=== PATIENT | female | born 1965 | race Caucasian/White ===

== ENCOUNTER → 2021-03-08 12:07 | Outpatient (CLI) | payer OTHER, SELFPAY ==
[2021-03-08 15:21] LABS: ALB/GLOB Ratio 0.8 RATIO (0.9-2.4); AST(SGOT) 15 U/L (15-37); Alanine Aminotransfer ALT/SGPT 32 U/L (13-56); Albumin, Serum 3.4 g/dL (3.2-5.0); Alkaline Phosphatase 45 U/L (45-117); Anion Gap 8 (5-15); BUN 19 mg/dL (7-18); BUN/Creat Ratio 19.9 RATIO (10-20); Calcium,Total 9.2 mg/dL (8.5-10.1); Chloride 99 mmol/L (98-107); Creatinine, Serum 0.95 mg/dL (0.55-1.02); EST Glomerular Filtration Rate 64 mL/min (>60); Est Glom Filt Rate - Afr Amer 78 mL/min (>60); Globulin 4.5 g/dL (2.2-4.2); Glucose 89 mg/dL (74-106); Potassium 3.7 mmol/L (3.5-5.1); Protein, Total 7.9 g/dL (6.4-8.2); Sodium Level 139 mmol/L (136-145)
== END ==
PROVIDERS: PCP Family Medicine; Referring Provider Family Medicine; Visit Provider Family Medicine
DX: I10 Essential (primary) hypertension (principal)
CPT/HCPCS: 36415; 80053

== ENCOUNTER 2022-04-16 11:56 | Outpatient (CLI) | payer OTHER, SELFPAY ==
[2022-04-16 15:31] LABS: ALB/GLOB Ratio 0.8 RATIO (0.9-2.4); AST(SGOT) 18 U/L (15-37); Alanine Aminotransfer ALT/SGPT 34 U/L (13-56); Albumin, Serum 3.4 g/dL (3.2-5.0); Alkaline Phosphatase 55 U/L (45-117); Anion Gap 5 (5-15); BUN 17 mg/dL (7-18); BUN/Creat Ratio 19.6 RATIO (10-20); Calcium,Total 9.1 mg/dL (8.5-10.1); Chloride 100 mmol/L (98-107); Cholesterol 151 mg/dL (200); Creatinine, Serum 0.87 mg/dL (0.55-1.02); EST Glomerular Filtration Rate 71 mL/min (>60); Est Glom Filt Rate - Afr Amer 86 mL/min (>60); Globulin 4.4 g/dL (2.2-4.2); Glucose 91 mg/dL (74-106); High Density Lipoprotein 48 mg/dL; Potassium 3.8 mmol/L (3.5-5.1); Protein, Total 7.8 g/dL (6.4-8.2); Sodium Level 136 mmol/L (136-145); Triglycerides 125 mg/dL; Very Low Density Lipoprotein 25 mg/dL (5-40)
== END 2022-04-16 23:59 | disposition home or self-care (01) ==
LOC: BIMLAB 11:57
PROVIDERS: PCP Family Medicine; Visit Provider Family Medicine
DX: E78.00 Pure hypercholesterolemia, unspecified (principal)
CPT/HCPCS: 36415; 80053; 80061

== ENCOUNTER → 2023-04-02 | Outpatient (CLI) | payer OTHER, SELFPAY ==
[2023-04-02 12:53] LABS: AST(SGOT) 17 U/L (15-37); Alanine Aminotransfer ALT/SGPT 38 U/L (13-56); Albumin, Serum 3.8 g/dL (3.2-5.0); Alkaline Phosphatase 43 U/L (45-117); Anion Gap 5 (5-15); BUN 18 mg/dL (7-18); BUN/Creat Ratio 19.5 RATIO (10-20); Calcium,Total 8.9 mg/dL (8.5-10.1); Chloride 101 mmol/L (98-107); Cholesterol 149 mg/dL (200); Creatinine, Serum 0.92 mg/dL (0.55-1.02); EST Glomerular Filtration Rate 66 mL/min (>60); Est Glom Filt Rate - Afr Amer 80 mL/min (>60); Glucose 108 mg/dL (74-106); High Density Lipoprotein 44 mg/dL; Potassium 3.7 mmol/L (3.5-5.1); Protein, Total 7.8 g/dL (6.4-8.2); Sodium Level 136 mmol/L (136-145); Triglycerides 90 mg/dL; Very Low Density Lipoprotein 18 mg/dL (5-40)
[2023-04-05 16:54] LABS: HPV Reflexed? NOT INDICATED
== END | disposition home or self-care (01) ==
LOC: BIMLAB 09:40
PROVIDERS: PCP Family Medicine; Referring Provider Family Medicine; Visit Provider Family Medicine
DX: Z01.419 Encounter for gynecological examination (general) (routine) without abnormal findings (principal); I10 Essential (primary) hypertension; E78.00 Pure hypercholesterolemia, unspecified
CPT/HCPCS: 36415; 80053; 80061; 88175; G0145

== ENCOUNTER → 2023-07-02 | Outpatient (CLI) | payer OTHER, SELFPAY ==
--- OUTSIDE RECORDS SUMMARY | 2023-07-02 07:05 | XMS RPT_ITS | CCD ---
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 Role Phone DAHIANA LE DO Primary Care Physician SURJIT SMITH, DR BREWER Attending Unavailab le DAHIANA LE DO Primary Care Unavailable DAHIANA LE DO Attending Unavailable DAHIANA LE DO Primary Care Unavailable Medications Current Medications Medication Drug Class(es) Dates Sig (Normalized) Sig (Original) aspirin 81 mg oral tablet (2 sources) Platelet Aggregation Inhibitor, Nonsteroidal Anti-inflammatory Drug Start: 06-23-2014 take 1 dose by mouth once daily aspirin Dose : 81 mg =, Oral, qDay Start Date: 06/23/14 Status: Ordered hydroCHLOROthiazide 12.5 mg / valsartan 80 mg oral tablet (1 source) Thiazide Diuretic, Angiotensin 2 Receptor Evan Start: 06-23-2014 take 1 tablet by mouth once daily Diovan HCT 80 mg-12.5 mg oral tablet Dose = 1 tab(s), Oral, Daily Start Date: 06/23/14 Status: Ordered omeprazole 20 mg delayed release oral capsule (2 sources) Proton Pump Inhibitor Start: 10-01-2018 take 1 capsule by mouth once daily omeprazole 20 mg oral delayed release capsule TAKE ONE CAPSULE BY MOUTH EVERY DAY Start Date: 10/01/18 Status: Ordered pravastatin sodium 10 mg oral tablet (2 sources) HMG-CoA Reductase Inhibitor Start: 06-23-2014 pravastatin 10 mg oral tablet Dose : 10 mg = 1 tab(s), Oral, qHS Start Date: 06/23/14 Status: Ordered valsartan (1 source) Angiotensin 2 Receptor Evan Start: 06-23-2014 take 1 tablet by mouth once daily Diovan HCT 80 mg-12.5 mg oral tablet Dose = 1 tab(s), Oral, Daily Start Date: 06/23/14 Status: Ordered Problems Problem Classification Problem Date Documented Date Episodic/Chronic Disorders of lipid metabolism (2 sources) Hypercholesterolemia 06-23-2014 Chronic Essential hypertension (2 sources) Hypertensive disorder 06-23-2014 Chronic Other upper respiratory infections (1 source) Acute upper respiratory infection; Translations: [Acute upper respiratory infection, unspecified] Onset: Episodic Results Test Name Value Interpretation Reference Range Facil ity Vital Signs Date Time Vital Sign Value Performing Clinician Faci lity 11-28-2022 08:56-[address] DANIELLA EDDY MD [facility] 11-28-2022 08:56-[address] DANIELLA EDDY MD [facility] 11-28-2022 08:56-0400 Body temperature 99.68 [degF] DR DANIELLA EDDY MD [facility] 11-28-2022 08:56-0400 Diastolic Blood Pressure Non-Invasive [address] DANIELLA EDDY MD [facility] 11-28-2022 08:56-0400 Heart rate 92 /min DR DANIELLA EDDY MD [facility] 11-28-2022 08:56-0400 Respiratory rate 18 /min DR DANIELLA EDDY MD [facility] 11-28-2022 08:56-0400 Systolic Blood Pressure Non-Invasive [address] DANIELLA EDDY MD [facility] Encounters Encounter Date Encounter Type Care Provider Facility Start: 06-20-2023 ambulatory DAHIANA LE DO Faci lity:B Start: 11-28-2022 End: 11-28-2022 Emergency department patient visit DR DANIELLA EDDY MD Facility:B Start: 11-28-2022 End: 11-28-2022 Emergency department patient visit DR DANIELLA EDDY MD [facility] Start: 05-17-2021 End: 05-17-2021 Patient encounter procedure DAHIANA LE DO [facility] Procedures Date Procedure Procedure Detail Performing Clinician section DAHIANA LARSON DO Payers Date Payer Category Payer Unknown [id number] 1965 Unknown [id number] 1965 Unknown [id number] Social History Date Type Detail Facility Start: 10-01-2018 Never smoked t obacco (finding) [facility] Assigned At [facility] Functional Status Date Assessment Result Facility 11-28-2022 Functional Status ID band on, Call device within reach, Bed in low position, Wheels locked, Upper/Half-Length side-rails up, Visitor at bedside [facility] Mental Status Date Assessment Result Facility 11-28-2022 Mental Status Oriented x 4 [facility] Discharge instructions 11-28-2022 Note Date & Type Note Facility 11-28-2022 Hospital Discharg e instructions Patient Education 11/28/2022 10:31:21 URI, Viral, No Abx (Adult) Viral Upper Respiratory Illness (Adult) You have a viral upper respiratory illness (URI), which is another term for the common cold. This illness is contagious during the first few days. It is spread through the air by coughing and sneezing. It may also be spread by direct contact (touching the sick person and then touching your own eyes, nose, or mouth). Frequent handwashing will decrease risk of spread. Most viral illnesses go away within 7 to 10 days with rest and simple home remedies. Sometimes the illness may last for several weeks. Antibiotics will not kill a virus, and they are generally not prescribed for this condition. Home care If symptoms are severe, rest at home for the first 2 to 3 days. When you resume activity, don't let yourself get too tired. Don't smoke. If you need help stopping, talk with your healthcare provider. Avoid being exposed to cigarette smoke (yours or others ). You may use acetaminophen or ibuprofen to control pain and fever, unless another medicine was prescribed. If you have chronic liver or kidney disease, have ever had a stomach ulcer or gastrointestinal bleeding, or are taking blood-thinning medicines, talk with your healthcare provider before using these medicines. Aspirin should never be given to anyone under 18 years of age who is ill with a viral infection or fever. It may cause severe liver or brain damage. Your appetite may be poor, so a light diet is fine. Stay well hydrated by drinking 6 to 8 glasses of fluids per day (water, soft drinks, juices, tea, or soup). Extra fluids will help loosen secretions in the nose and lungs. Nvtz-pdc-kkmklzj cold medicines will not shorten the length of time you re sick, but they may be helpful for the following symptoms: cough, sore throat, and nasal and sinus congestion. If you take prescription medicines, ask your healthcare provider or pharmacist which drdz-imz-ovgenle medicines are safe to use. (Note: Don't use decongestants if you have high blood pressure.) Follow-up care Follow up with your healthcare provider, or as advised. When to seek medical advice Call your healthcare provider right away if any of these occur: Cough with lots of colored sputum (mucus) Severe headache; face, neck, or ear pain Difficulty swallowing due to throat pain Fever of 100.4 F (38 C) or higher, or as directed by your healthcare provider Call 911 Call 911 if any of these occur: Chest pain, shortness of breath, wheezing, or difficulty breathing Coughing up blood Very severe pain with swallowing, especially if it goes along with a muffled voice [phone] [employer]. [address] [place] [address], [place] [address]. All rights reserved. This information is not intended as a substitute for professional medical care. Always follow your healthcare professional's instructions. Follow Up Care 11/28/2022 08:47:28 With:DAHIANA LE DO Address: [facility] [address] [place] [address] [place] [address] [phone] When:2-4 days [facility] Kirstenselina Resendez Clinical Note 11-28-2022 Note Date & Type Note Facility 11-28-2022 Note Discharge Instructions Thank you for allowing [facility] to assist you with your healthcare needs. The following is important discharge information regarding your hospital visit. Diagnosis from Today's Visit URTI - Viral upper respiratory tract infection Cough Fever What to Do Next Instructions from Your Care Team Coricidin HP can be purchased lfbo-ezv-hpkbupm may help with your sinus congestion and drainage Discharge Return to Work, School, or Sports (Return to Work, School, or Sports) - Ordered -- 11/28/22, 11/30/22, May return to: work, 11/28/22 10:31:00 EDT Post Acute Orders No qualifying data available. You Need to Schedule the Following Appointments Follow Up with DAHIANA LE DO When Within 2-4 days Where: [facility] [address] [place] [address] [place] [address]- [phone] Allergies NKA Medications Please ask your primary doctor or pharmacist before taking any other medication not listed, including over the counter drugs, herbal medications, vitamins and or supplements as they may interact with your home medications. What How Much When Instructions Last Dose Unchanged aspirin 81 Milligram by mouth Once a day Unchanged hydrochlorothiazide-valsartan (Diovan HCT 80 mg-12.5 mg oral tablet) 1 tab(s) by mouth Every day Unchanged omeprazole (omeprazole 20 mg oral delayed release capsule) TAKE ONE CAPSULE BY MOUTH EVERY DAY Unchanged pravastatin (pravastatin 10 mg oral tablet) 1 tab(s) by mouth Daily at bedtime Please take this list to your next doctor s visit. Bring all medications you take, including over the counter medications, herbals and other supplements with you to your doctor s visit. Patients and families are reminded to discard old lists and to update any records with all medication providers or retail pharmacies. Education Materials Viral Upper Respiratory Illness (Adult) You have a viral upper respiratory illness (URI), which is another term for the common cold. This illness is contagious during the first few days. It is spread through the air by coughing and sneezing. It may also be spread by direct contact (touching the sick person and then touching your own eyes, nose, or mouth). Frequent handwashing will decrease risk of spread. Most viral illnesses go away within 7 to 10 days with rest and simple home remedies. Sometimes the illness may last for several weeks. Antibiotics will not kill a virus, and they are generally not prescribed for this condition. Home care If symptoms are severe, rest at home for the first 2 to 3 days. When you resume activity, don't let yourself get too tired. Don't smoke. If you need help stopping, talk with your healthcare provider. Avoid being exposed to cigarette smoke (yours or others ). You may use acetaminophen or ibuprofen to control pain and fever, unless another medicine was prescribed. If you have chronic liver or kidney disease, have ever had a stomach ulcer or gastrointestinal bleeding, or are taking blood-thinning medicines, talk with your healthcare provider before using these medicines. Aspirin should never be given to anyone under 18 years of age who is ill with a viral infection or fever. It may cause severe liver or brain damage. Your appetite may be poor, so a light diet is fine. Stay well hydrated by drinking 6 to 8 glasses of fluids per day (water, soft drinks, juices, tea, or soup). Extra fluids will help loosen secretions in the nose and lungs. Adit-tgr-wpregdq cold medicines will not shorten the length of time you re sick, but they may be helpful for the following symptoms: cough, sore throat, and nasal and sinus congestion. If you take prescription medicines, ask your healthcare provider or pharmacist which ykmb-gla-cxomsxn medicines are safe to use. (Note: Don't use decongestants if you have high blood pressure.) Follow-up care Follow up with your healthcare provider, or as advised. When to seek medical advice Call your healthcare provider right away if any of these occur: Cough with lots of colored sputum (mucus) Severe headache; face, neck, or ear pain Difficulty swallowing due to throat pain Fever of 100.4 F (38 C) or higher, or as directed by your healthcare provider Call 911 Call 911 if any of these occur: Chest pain, shortness of breath, wheezing, or difficulty breathing Coughing up blood Very severe pain with swallowing, especially if it goes along with a muffled voice [phone] [employer]. [address] [place] [address], [place] [address]. All rights reserved. This information is not intended as a substitute for professional medical care. Always follow your healthcare professional's instructions. Additional Information VACCINATE! IT SAVES LIVES! Members of the community who have not yet received the COVID-19 vaccine and would like to receive it can visit one of [facility] vaccine clinics. There are many vaccine clinic locations within the [facility]. For locations and available times, please visit www.gettheshot.coronavirus.[place].gov/. It is important to note that some COVID mobile vaccine clinics are held outdoors and may be canceled in rainy or stormy conditions. To learn more about pediatric vaccinations (ages 5-11), we invite you to visit the [facility] webpage. https://www.[facility].org/pages/2 347-Wrxfu-Zbdtmimmmzb-Frequently-Asked -Questions.html To learn more about the COVID-19 vaccine, we invite you to visit the CDC website for a list of frequently asked questions. https://www.cdc.gov/coronavirus/2019-n cov/vaccines/faq.html [email or web address] Patient Portal Access Instructions: Stay connected with your healthcare team and access your personal medical information anytime with the [email or web address] Patient Portal. If you would like a full copy of your medical records please contact the [facility] Medical Records Department Saturday through Saturday between 8a.m. and 4:30p.m. Please follow the directions below to access the portal: 1.Access the email account you provided upon registration to the hospital.2.Look for an invitation email from [facility].3.Open the email and access the invitation link: Accept Invitation to [email or web address].Fill in the required brito to create your account. Sign into [email or web address] with your username and password that you created in the above steps to stay up to date. You can then view a summary of results, a summary of your visits, and the ability to download your summaries to your computer or send the information securely to a physician. Remember that your healthcare information is confidential, so carefully consider who you will allow to register on the [facility] Patient Portal for access to your information. You can also access the [facility] Patient Portal on the [employer] molina. Simply click on Health Records under Health Data and then click on the [employer] logo. HOW TO SAFELY DISPOSE OF PRESCRIPTION MEDICATIONS Please use one of the following methods to safely dispose of your unused medications. 1.Use a drug disposal kit: the drug disposal pouch allows you to safely discard your old and unused drugs. Ask your nurse to give you one when you are discharged.2.Visit a local take-back location: Many local pharmacies and police departments have programs that collect old and unwanted prescription drugs. Call your local pharmacy or go to http://[employer] Systems/7R8Dx7k to find one close to you.3.Make use of household items: Use cat litter or old coffee grounds to dispose medications if other options are not available. Mix your drugs with these household products, seal them in an airtight container and throw it into the garbage. Call [facility]: [phone] to be sure your drugs can be disposed of in this way. Some medicines may require a different approach.4.Never flush your medications down the toilet. IF YOU HAVE BEEN PRESCRIBED AN OPIOIDS FOR PAIN If you have been prescribed an opioid (such as hydrocodone, oxycodone or morphine), it is critical to understand the possible side effects and risks of opioid pain medications. Even when taken as directed, opioids can have several side effects including: Tolerance, meaning you might need to take more of a medication for the same pain relief. Nausea, vomiting and/or constipation. Sleepiness, dizziness, dry mouth, confusion, depression or itching. Physical dependence, meaning you have withdrawal symptoms when a medication is stopped ? this can develop within a few days. KNOW YOUR RESPONSIBILITIES It is important to know exactly how much and how often to take the opioid pain medications you are prescribed. Never take opioids in higher amounts or more often than prescribed. Do not combine opioids with alcohol or other drugs that cause drowsiness, such as benzodiazepines, also known as benzos, including diazepam and alprazolam, muscle relaxants or sleep aids. Never sell or share prescription opioids. This is illegal. Store opioids in a secure place and out of reach of others (including children, family, friends and visitors). The last page(s) of this document has been signed and retained as a CHART COPY Signatures Patient Education Materials URI, Viral, No Abx (Adult) Medication Leaflets My discharge plan and instructions have been reviewed and explained to me and I,ALEX LUZ understand my current condition and have read and understand these discharge instructions. I have received a written copy of the plan/instructions. If I have questions, I am aware that I should contact my doctor. 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 Mild peribronchial cuffing. No focal consolidation or pulmonary edema. No pneumothorax or pleural effusion. IMPRESSION: Mild peribronchial cuffing may represent reactive airways disease or viral illness (i.e. bronchitis). No focal consolidation. Interpreted by: Parish Ying DO Preliminary Report By: Parish Ying DO Electronically signed By Parish Ying DO Dictated Date: 11/28/2022 9:53:04 AM Prelim Date: 11/28/2022 9:55:27 AM Sign Date: 11/28/2022 9:55:27 AM Ordering Provider: DANIELLA EDDY [facility] Clinical Note 11-28-2022 Note Date & Type Note Facility 11-28-2022 Note ORIGINAL EXAMINATION: TWO XRAY VIEWS OF THE CHEST 11/28/2022 9:29 am COMPARISON: 06/23/2014 HISTORY: ORDERING SYSTEM PROVIDED HISTORY: Reason for Exam: SOB/Cough/Fever Shortness of breath, cough started Saturday, fever started Saturday FINDINGS: Borderline cardiomegaly. Mild peribronchial cuffing. No focal consolidation or pulmonary edema. No pneumothorax or pleural effusion. IMPRESSION: Mild peribronchial cuffing may represent reactive airways disease or viral illness (i.e. bronchitis). No focal consolidation. Interpreted by: Parish Ying DO Preliminary Report By: Parish Ying DO Electronically signed By Parish Ying DO Dictated Date: 11/28/2022 9:53:04 AM Prelim Date: 11/28/2022 9:55:27 AM Sign Date: 11/28/2022 9:55:27 AM Ordering Provider: DANIELLA EDDY [facility] SARS-CoV-2 (COVID-19) RNA PAULINE+probe Ql (Nph) 11-28-2022 Note Date & Type Note Facility 11-28-2022 SARS-CoV-2 (COVID -19) RNA PAULINE+probe Ql (Nph) Negative *NA* (11/28/22 9:28 AM) AO Auto Urine SS Evaluation + Plan note Note Date & Type Note Facility Evaluation + Plan note No data available for this section [facility] Hospital Discharge instructions Note Date & Type Note Facility Hospital Discharge instructions No data available for this section [facility] Summary Purpose Family History No Family History Records Found Advance Directives No Advanced Directives Records Found Additional Source Comments Patient Care team informatio n (unrecognized section and content) Care Team Personnel Name: DAHIANA LE DO Member Role: Primary Care Physician Address: Address: [facility] [address] [place] [id number] [place] Name: Radha Everett RN Position: AO RN Member Role: ED RN Name: MD SURJIT, DANIELLA SMITH Position: ED Physician Member Role: ED Physician Address: Address: [address] [place] [id number] Care Team Related Persons Name: ISABELLA LUZ Address: Home [address] [place] [address], [place] [id number] Address: [facility] [address] [facility] [id number] Name: SANDI LUZ Address: [address] [place] [address] Name: YRN LUZ Address: [address] [place] [address] INFORMATION SOURCE (unrecogn ized section and content) FOR RECORDS PERTAINING TO PATIENTS WHO ARE OR HAVE BEEN ENROLLED IN A CHEMICAL DEPENDENCY/SUBSTANCEABUSE PROGRAM, SOME INFORMATION MAY BE OMITTED. This clinical summary was aggregated from multiple sources. Caution should be exercised in using it in the provision of clinical care. This summary normalizes information from multiple sources, and as a consequence, information in this document may materially change the coding, format and clinical context of patient data. In addition, data may be omitted in some cases. CLINICAL DECISIONS SHOULD BE BASED ON THE PRIMARY CLINICAL RECORDS. [facility] [employer] [facility]. provides no warranty or guarantee of the accuracy or completeness of information in this document.
== END | disposition home or self-care (01) ==
LOC: PSN 07:03
PROVIDERS: PCP Family Medicine; Referring Provider Family Medicine; Visit Provider Family Medicine
DX: I49.9 Cardiac arrhythmia, unspecified (principal)
CPT/HCPCS: 93225; 93226

== ENCOUNTER 2024-03-05 08:06 | Day surgery (SDC) | payer OTHER, SELFPAY ==
[2024-03-05] VITALS (7 sets, daily range): BP systolic 111–144; BP diastolic 56–69; PULSE 67–73; RESP 16; TEMP 36.2–36.6; O2SAT 93–99; BMI 36.4
--- NOTE | 2024-03-05 08:35 | PRE.ANES_ITS ---
ASA Classification* ASA Classification ASA Classification: 2 Assessment & Plan Anesthesia* Anesthesia Assessment Anesthesia Assessment: Discussed sedation and/or anesthesia options, risks, benefits, and alternatives with patient/parents/legal guardian/POA. Questions invited. The patient/parents/legal guardian/POA seems to understand and agrees to proceed with anesthesia plan. Reviewed the physical assessment, medical history, allergy history and patient home medications list prior to surgery/procedure/anesthetic and documented any changes. Performed airway and anesthesia risk assessments. 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 When Was Last Pacemaker Check QUESTION #4 FULL TEXT: You/Your Family Experience fever (hyperthermia) with Anesthesia Last Oral Intake Last Oral intake: Last Oral Intake NPO since Meds taken in AM with sips of water? 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 Female Yes 03/02/24 10:30 HX of Motion Sickness No 03/02/24 10:30 HX of N/V After Surgery No 03/02/24 10:30 Non-Smoker Yes 03/02/24 10:30 Duration of Surgery greater No 03/02/24 10:30 than 60 minutes Number of Risk Factors 2 03/02/24 10:30 PONV Score Moderate Risk 03/02/24 10:30 Height & Weight Height & Weight: Anesthesia: Height & Weight Height 5 ft 5 in 01/22/24 13:57 Respiratory Assessment Respiratory Assessment - steel shot header operator: Respiratory Tract Infection Hx - 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 Has anyone observed you stop No 03/02/24 10:30 breathing during sleep? STOP Results Positive 03/02/24 10:30 QUESTION #5 FULL TEXT : Do you snore loudly (louder than talking or can be heard through closed doors)? 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 Specify any problems Hx of Preganancy in last 3 No 03/02/24 10:30 Months Nurse Filling Out Transfusion VCHRISTIN 03/02/24 10:30 & Questions: Date: 03/02/24 03/02/24 10:30 Time: 10:31 03/02/24 10:30 Patient unable to answer at this time (ie. 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: /Reproductive Hx- steel shot header operator Hx Now No 03/02/24 10:30 Gestational Age (in weeks): EDC: Hx Hx Para Hx Section SAB No 03/02/24 10:30 PFS Medical History Wears glasses Post-menopausal Arthritis Back pain Gastric reflux Non-smoker Leg cramps History of stress test History of Holter monitoring GERD (gastroesophageal reflux disease) High blood pressure High cholesterol Home Medications ?Medication ?Instructions ?Recorded ?Last Taken ?Type aspirin 81 mg tablet,delayed 81 mg PO QDAY 12/27/17 Unknown History release pravastatin 10 mg tablet 10 mg PO QHS #90 tabs 04/02/23 Unknown Rx valsartan 160 See Rx Instructions .Route 04/02/23 Unknown Rx mg-hydrochlorothiazide 12.5 mg .COMPLEX #90 tabs tablet omeprazole 20 mg capsule,delayed 20 mg PO DAILY #90 caps 01/11/24 Unknown Rx release metoprolol succinate 25 mg 25 mg PO DAILY #30 tabs 02/28/24 Unknown Rx tablet,extended release 24 hr Allergy/AdvReac Type Severity Reaction Status Date / Time No Known Allergies Allergy Verified 03/05/24 08:35 Family History Mother Diabetes Heart disease Hypertension CVA (cerebral vascular accident) Father Cancer lung Surgical History Hx of arthroscopy of shoulder History of arthroscopy of left shoulder History of Social History Smoking Status: Never smoker alcohol intake: never substance use type: does not use what type of physical activity do you participate in: none Review of Systems (Anesthesia) ROS Narrative System reviewed and no additional complaints, except as documented.
--- NOTE | 2024-03-05 09:51 | PCM.HP.BLA ---
History and Physical HPI: Patient is a 58-year-old female who presents for need to schedule diagnostic colonoscopy secondary to blood in stool. They are referred for surgical consultation from Dr. Downs. Patient has not had prior colonoscopy. She reports that she completed Cologuard testing once before (2 years ago) and this was a negative result. She clarifies that she first noticed bright red blood per rectum in June of this year. She estimates that this bleeding lasted 2 to 3 days before remitted spontaneously. At that time she had been referred for colonoscopy but never received follow-up. He has she was largely dropped until she experienced another more self?limited bout of bright red blood per rectum a month ago. She notes that this episode was limited to a single trip to the bathroom. They describe their bowel habits as normal. They have approximately 1 bowel movements per day and spend roughly 10 minutes on the toilet generally without significant straining. They do not regularly take fiber supplements. They do not consume significant fiber in their regular diet. There is a history of hemorrhoids. Patient states this started with but has not been often. Her primary complaint with hemorrhoids previously was bulging and she insists that she has not seen much bleeding with this issue. She has previously treated these hemorrhoids successfully with [id number] Preparation H. Patient has no family history of colon cancer, inflammatory bowel disease, or diverticulitis. The patient's weight is stable. The patient is not prescribed anticoagulants/blood thinners. Relevant prior abdominal surgical history includes: Patient does have a significant history of GERD/heartburn. Patient initially states she was not aware there was a difference but upon clarifying the description she states she has more issues with reflux. Even at that, she shares that she faithfully uses Prilosec daily and with use of this medication she experiences breakthrough symptoms no more than 1 time per month. She does acknowledge that pizza seems to be a significant trigger. She has no history of tobacco use, no history of asthma, and there is no family history of French's esophagus or esophageal cancer. [] ROS General General: No weight change, appetite, fatigue, colon cancer, breast cancer or weakness HEENT HEENT: No difficulty swallowing, eye injury, eye surgery, swollen glands or hoarseness Endo Endocrine: No thyroid disease, diabetes mellitus, thyroid cancer, Hair loss, heat intolerance or cold intolerance Skin Skin: No rash or changing moles Musc Musculoskeletal: No back problems, arthritis, rheumatoid arthritis, gout or joint pain Cardio Cardiovascular: No murmur, pacemaker, heart disease, atrial fibrillation, high blood pressure, heart attack, heart stent, palpitations, shortness of breat with exertion or chest pain Psych Psychiatric: No depression, anxiety or hearing voices Resp Respiratory: No shortness of breath, No sleep apnea, No cough, No COPD, No asthma, No emphysema and No wheezing Gastro Gastrointestinal: No abdominal pain, No nausea or vomiting, No diarrhea, No constipation, Yes blood in stool, Yes acid reflux, Yes hemorrhoids, No ulcers, No gallbladder problem and No black,tarry stools Luis Hematologic: No blood thinners, No blood disorders, No bleeding, No anemia and No blood clots Neuro Neurologic: No numbness, No tingling and No weakness Exam Const General: cooperative and anxious Orientation: alert, awake and oriented x3 Resp Effort & Inspection: normal respiratory effort GI Other: Obese, no scars, no visible herniation, soft, nontender to palpation x 4 quadrants Assessment and Plan Assessment and Plan (1) Hematochezia: Status: Acute Comment: Patient is 58-year-old female with no prior history of colonoscopic evaluation, but per history, appears to be at average risk for colon cancer who presents for several episodes of self?limit hematochezia. By her description and history of hemorrhoids I do suspect this is related to hemorrhoid activity, however, in the absence of prior colonoscopy I find it necessary to pursue colonoscopy to confirm. Thus this recommendation was given to patient along with a overview of bowel prep completion. Patient's is very familiar with this process and they have few questions. Given the suspicion for possible hemorrhoid bleeding I have recommended that we consent Mrs. Brower for possible hemorrhoid banding at the time of her endoscopy session and provided expectations following this procedure as well. Plan: Plan will be to complete colonoscopy on first mutually agreeable date under local MAC. Pre-procedure prep discussed and paper instructions provided. Patient is also made aware that she will need to have a four horse hitch driver with her the day of the procedure. (2) GERD (gastroesophageal reflux disease): Status: Chronic Comment: Patient with well-controlled (minimal symptoms) on daily Prilosec. No alarm symptoms. No apparent significant risk factors for esophageal malignancy. Plan: Based on the above assessment do not find cause to recommend concurrent EGD with colonoscopy I have examined the patient the following changes are noted: Patient confirms she completed prep for today's procedure and then her output is now clear. However, she does note some active hemorrhoid activity today on the account of her frequent bowel movements. I did offer her endoscopic banding and she shares her preference would be to proceed without this procedure. Neither she nor her have any additional questions. Will proceed to endoscopy suite for planned colonoscopy given recent self-limited hematochezia.
--- NOTE | 2024-03-05 10:29 | OP.CCLET_ITS ---
03/05/2024 Dontae Downs Re : Colonoscopy procedure for Noble Brower Dear Dr. Downs This procedure was performed on February. My impressions and recommendations are as follows: Impressions : - Diverticulosis in the sigmoid colon. No specimens collected. - Internal hemorrhoids. No specimens collected. Recommendations : - Discharge patient to home (via wheelchair). - Resume previous diet today. - Continue present medications. - Repeat colonoscopy in 10 years for screening purposes. - Telephone my office for study results in 1 week. My findings are described in the full procedure note, which is enclosed. If I can be of further assistance, please feel free to contact me at Doctor phone number(s): , Work: . Sincerely, Brent Brown MD 03/05/2024 10:29:15 AM This report has been signed electronically.
--- NOTE | 2024-03-05 10:29 | OP.COLON_ITS ---
Patient Name: Noble Brower Procedure Date: 03/05/2024 9:56 AM Date of : 1965 Age: 58 Procedure: Colonoscopy Indications: Hematochezia Providers: Brent Brown MD Referring MD: Dontae Downs Medicines: See the Anesthesia note for documentation of the administered medications Patient Profile: Last Colonoscopy: none. The patient's first colonoscopy is today. Complications: No immediate complications. Estimated blood loss: None. Procedure: Pre-Anesthesia Assessment: - The heart rate, respiratory rate, oxygen saturations, blood pressure, adequacy of pulmonary ventilation, and response to care were monitored throughout the procedure. After I obtained informed consent, the scope was passed under direct vision. Throughout the procedure, the patient's blood pressure, pulse, and oxygen saturations were monitored continuously. The Colonoscope was introduced through the anus and advanced to the cecum, identified by palpation. The colonoscopy was somewhat difficult due to significant looping and a tortuous colon. Successful completion of the procedure was aided by changing the patient to a supine position. The patient tolerated the procedure well. The quality of the bowel preparation was excellent. Scope In: 10:00:54 AM Scope Withdrawal Time 0 hours 10 minutes 50 seconds Scope Out: 10:21:29 AM Total Procedure Duration Time 0 hours 20 minutes 35 seconds Findings: The perianal and digital rectal examinations were normal. A single small-mouthed diverticulum was found in the sigmoid colon. No biopsies or other specimens were collected for this exam. Internal hemorrhoids were found during retroflexion. The hemorrhoids were Grade II (internal hemorrhoids that prolapse but reduce spontaneously). No biopsies or other specimens were collected for this exam. Impression: - Diverticulosis in the sigmoid colon. No specimens collected. - Internal hemorrhoids. No specimens collected. Recommendation: - Discharge patient to home (via wheelchair). - Resume previous diet today. - Continue present medications. - Repeat colonoscopy in 10 years for screening purposes. - Telephone my office for study results in 1 week. Procedure Code(s): --- Professional --- 37580, Colonoscopy, flexible; diagnostic, including collection of specimen(s) by brushing or washing, when performed (separate procedure) Diagnosis Code(s): --- Professional --- K64.1, Second degree hemorrhoids K92.1, Melena (includes Hematochezia) K57.30, Diverticulosis of large intestine without perforation or abscess without bleeding CPT copyright 2021 [employer]. All rights reserved. The codes documented in this report are preliminary and upon men's locker room attendant review may be revised to meet current compliance requirements. Brent Brown MD 03/05/2024 10:29:15 AM This report has been signed electronically. Number of Addenda: 0 Note Initiated On: 03/05/2024 9:56 AM
--- NOTE | 2024-03-05 10:30 | PCM.POST.ANE ---
Anesthesia: Postop Eval I Current Vital Signs Temperature: 97.1 F Pulse Rate: 67 Blood Pressure: 113/56 Respiratory Rate: 16 Pulse Ox: 95 Oxygen Delivery Method: Room Air Assessment Airway patent: Yes Spontaneous unlabored respirations: Yes Mental status: Asleep nausea: No Vomiting: No Anesthesia Complication: No Fluid Hydration Crystalloid volume administer (ml): 60 Total IV fluid infused: 60 Progress Note Anesthesia document: Postop Eval 1 completed: Yes
--- NOTE | 2024-03-05 10:31 | PCM.POSTANE2 ---
Anesthesia Postop Eval I Sum Postop Eval Completion status Anesthesia document: Postop Eval 1 completed: Yes Anesthesia Postop Eval I Summary Anesthesia Postop Eval I Summary: Anesthesia Postop Eval I: Assessment Summary Airway patent Yes 03/05/24 10:31 [email or web address] Spontaneous unlabored Yes 03/05/24 10:31 [email or web address] respirations Mental status Asleep 03/05/24 10:31 [email or web address] nausea No 03/05/24 10:31 [email or web address] Vomiting No 03/05/24 10:31 [email or web address] Anesthesia Postop Eval I: Fluid Summary Crystalloid volume administer 60 03/05/24 10:31 [email or web address] (ml) Colloids volume administered ( ml) Blood Product volume administered (ml) Total IV fluid infused 60 03/05/24 10:31 [email or web address] Anesthesia Postop Eval I: Summary Notes Anesthesia Complication No 03/05/24 10:31 [email or web address] Anesthesia Complication Comment: Post-operative progress note Anesthesia: Postop Eval II Evaluation Mental status: Awake Pain Level: 0 nausea: No Vomiting: No
== END 2024-03-05 11:13 | disposition home or self-care (01) ==
LOC: EN 08:07 → AC 08:09
PROVIDERS: PCP Family Medicine; Referring Provider Family Medicine; Visit Provider Surgery
PROC: 0DJD8ZZ Inspection of Lower Intestinal Tract, Via Natural or Artificial Opening Endoscopic (ICD-10-PCS; CPT 45378; principal; 2024-03-05 09:10)
DX: K92.1 Melena (principal); K57.30 Diverticulosis of large intestine without perforation or abscess without bleeding; K64.1 Second degree hemorrhoids; K21.9 Gastro-esophageal reflux disease without esophagitis
CPT/HCPCS: 45378; A4216; J2405

== ENCOUNTER → 2024-10-20 | Outpatient (CLI) | payer OTHER, SELFPAY ==
[2024-10-20 12:44] LABS: ALB/GLOB Ratio 1.2 RATIO (0.9-2.4); AST(SGOT) 17 U/L (<=31); Alanine Aminotransfer ALT/SGPT 18 U/L (<=34); Albumin, Serum 4.1 g/dL (3.4-4.8); Alkaline Phosphatase 59 U/L (35-104); Anion Gap 11 (5-15); BUN 18 mg/dL (4-19); BUN/Creat Ratio 18.1 RATIO (10-20); Calcium,Total 9.5 mg/dL (7.6-11.0); Chloride 98 mmol/L (98-108); Cholesterol 153 mg/dL (<=200); Creatinine, Serum 0.98 mg/dL (0.70-1.20); EST Glomerular Filtration Rate 66 (>60); Globulin 3.4 g/dL (2.2-4.2); Glucose 121 mg/dL (70-99); High Density Lipoprotein 43 mg/dL; Low Density Lipoprotein Calc. 80 mg/dL; Potassium 3.6 mmol/L (3.3-5.1); Protein, Total 7.5 g/dL (5.9-8.4); Sodium Level 139 mmol/L (133-145); Total Bilirubin 0.55 mg/dL (0.00-1.30); Triglycerides 148 mg/dL; Very Low Density Lipoprotein 30 mg/dL (5-40); cholesterol:hdl ratio screen 3.56
[2024-10-22 08:08] LABS: Rubeola IgG Ab > 300.0 AU/mL (Immune >16.4)
== END | disposition home or self-care (01) ==
LOC: BIMLAB 10:35
PROVIDERS: PCP Family Medicine; Referring Provider Family Medicine; Visit Provider Family Medicine
DX: Z00.00 Encounter for general adult medical examination without abnormal findings (principal); E78.00 Pure hypercholesterolemia, unspecified; I10 Essential (primary) hypertension
CPT/HCPCS: 36415; 80053; 80061; 86765